=== PATIENT | male | born 2000 | race African-American/Black ===

== ENCOUNTER 2021-09-13 14:06 | Emergency (ER) | payer SELFPAY ==
[2021-09-13 14:09] VITALS: BP 172/76; PULSE 98; RESP 17; TEMP 36.2; O2SAT 100
--- NOTE | 2021-09-13 14:40 | ED.MALEGU ---
HPI - Male Genitourinary General Chief complaint: Urogenital-Male Stated complaint: penile abnormality Time Seen by Provider: 09/13/21 14:25 Source: patient Mode of arrival: ambulatory Limitations: no limitations History of Present Illness HPI Narrative: This is a 21 year old male that presents to the ER for lesions on his penis noted today. Reports he was treated a couple of days ago for chlamydia and gonorrhea as he was having some penile discharge. Reports today he noted painful ulcerations on the tip of his penis. The discharge has subsided since his treatment with antibiotics. Denies fever or dysuria. Related Data Allergies Allergy/AdvReac Type Severity Reaction Status Date / Time No Known Allergies Allergy Verified 09/13/21 14:11 Review of Systems Review of Systems: CONSTITUTIONAL: Denies fever SKIN: Reports rash All systems reviewed & are unremarkable except as noted in HPI and below PMFSH Past Medical History Medical History (Updated 09/13/21 @ 14:52 by Iesha Mclaughlin PA-C) No active medical problems Social History Social History (Updated 09/13/21 @ 14:43 by Iesha Mclaughlin PA-C) Substance use: never Exam Narrative: GENERAL: Well-appearing, well-nourished, and in no acute distress. HEAD: Normocephalic, atraumatic. EYES: EOMI. EXTREMITIES: Normal range of motion. No edema. SKIN: Warm, dry, no rash. NEURO: No focal deficits. Alert and oriented x3. PSYCH: Normal mood and affect MALE GENITAL: A few small ulcerations noted on the tip on the penis Course Vital Signs Vital signs: Vital Signs Temperature 97.1 F L 09/13/21 14:09 Pulse Rate 98 09/13/21 14:09 Respiratory Rate 17 09/13/21 14:09 Blood Pressure 172/76 H 09/13/21 14:09 Pulse Oximetry 100 09/13/21 14:09 Temperature 97.1 F L 09/13/21 14:09 Pulse Rate 98 09/13/21 14:09 Respiratory Rate 17 09/13/21 14:09 Blood Pressure 109/69 09/13/21 15:04 Pulse Oximetry 100 09/13/21 14:09 MDM - Male Genitourinary MDM Narrative Medical decision making narrative: Patient presents to the ER for a painful rash noted on the penis. He had been previously treated at another facility for chlamydia and gonorrhea as he was having some abnormal discharge. He noted the ulcerations on the tip of his penis today. Rash seems consistent with likely genital herpes. Will be started on oral antiviral and given primary doctor for follow-up. He was given warnings to return to the ER Critical Care Time Critical Care Time Critical Care Time: No Discharge Plan Discharge Clinical Impression: Rash and nonspecific skin eruption Patient Disposition: Home, Self-Care Condition: Stable Instructions: Genital Herpes Simplex (ED), Sexually Transmitted Diseases (ED), Safe Sex Practices (ED) Additional Instructions: Return to the emergency department if you experience fever, pain or burning with urination, you are unable to urinate, or any other symptoms that are concerning you Take valacyclovir as prescribed Follow-up with primary care doctor Prescriptions: New valacyclovir 1 gram tablet 1,000 mg PO Q12H 7 Days Qty: 14 RF: 0 Follow-up/Referrals: PHYSICIAN NOT ON STAFF,NONSTAFF [Primary Care Provider] - Gurdeep Lane MD [Physician] - 3 Days
[2021-09-13 15:04] VITALS: BP 109/69
== END 2021-09-13 15:12 | disposition home or self-care (01) ==
PROVIDERS: Emergency Provider Emergency Medicine
DX: R21 Rash and other nonspecific skin eruption (principal)
CPT/HCPCS: 99283